=== PATIENT | female | born 1940 | race Caucasian/White ===

== ENCOUNTER 2019-10-11 23:35 | Inpatient (IN) ==
[2019-10-12] MEDS ORDERED: *HR* Metoprolol 5 MG/5 ML VIAL IVP ONE ×3 (03:58→05:49)
[2019-10-12 04:41] LABS: Basophils % 0.1 %; Hemoglobin 15.3 g/dL (11.5-15.4); Immature Granulocytes % 0.6 % (0-4); Lymphocytes # 0.6 K/mcL (0.6-4.6); Lymphocytes % 7.3 %; Mean Corpuscular Hemoglobin 30.7 pg (28.0-33.3); Mean Corpuscular Volume 90.4 fL (83.0-100.0); Mean Platelet Volume 9.2 fL (9.4-12.4); Monocytes # 0.2 K/mcL (0.0-1.3); Monocytes % 1.9 %; Neutrophils # 7.5 K/mcL (1.6-8.9); Platelet Count 201 K/mcL (140-400); Red Blood Count 4.98 M/mcL (3.82-4.97); Red Cell Distribution Width 12.3 % (11.5-14.5); Segmented Neutrophils % 90.1 %; White Blood Count 8.3 K/mcL (4.3-11.1)
[2019-10-12 04:47] LABS: INR 1.2; Prothrombin Time 13.5 Seconds (9.4-12.1)
[2019-10-12 05:06] LABS: Alanine Aminotransferase 10 Units/L (7-52); Albumin 4.1 g/dL (3.5-5.7); Albumin/Globulin Ratio 1.5 (1.1-2.2); Alkaline Phosphatase 67 Units/L (34-104); Aspartate Amino Transferase 11 Units/L (13-39); BUN/Creatinine Ratio 15 (6-26); Bilirubin,Total 0.8 mg/dL (0.3-1.0); Blood Urea Nitrogen 9 mg/dL (8-23); Calcium 8.8 mg/dL (8.6-10.3); Carbon Dioxide 23 mEq/L (23-29); Chloride 106 mEq/L (98-107); Globulin 2.7 g/dL (2.4-3.5); Glucose 209 mg/dL (70-105); Osmolality,Calculated 297 (280-300); Phosphorous 2.7 mg/dL (2.7-4.5); Potassium 3.9 mEq/L (3.5-5.1); Sodium 141 mEq/L (136-145); Total Protein 6.8 g/dL (6.4-8.9); Troponin I < 0.03 ng/mL (< 0.04); eGFR For African Americans > 60 (> 60); eGFR For Non-African Americans > 60 (> 60)
[2019-10-12 05:21] LABS: Thyroid Stimulating Hormone < 0.010 mcIU/mL (0.340-5.600)
[2019-10-12 06:03] LABS: Bilirubin,Urine Negative (Negative); Blood,Urine Negative (Negative); Clarity,Urine Clear (Clear); Color,Urine Yellow (Yellow); Glucose,Urine (UA) 500 mg/dL (Normal); Ketones,Urine Negative (Negative); Leukocyte Esterase,Urine Negative (Negative); Nitrite,Urine Negative (Negative); Protein,Urine Trace mg/dL (Neg-Trace); Specific Gravity,Urine 1.017 (1.010-1.025); Urobilinogen,Urine Normal (Normal)
[2019-10-12] MEDS ORDERED: Naloxone 0.4 MG/ML INJ IVP PRN (08:13)
[2019-10-12] MEDS ORDERED: Acetaminophen 325 MG TABLET PO ONE (08:21)
[2019-10-12] MEDS: Apixaban 5 MG TABLET PO SCH ×2 (09:04→20:02)
[2019-10-12 11:07] LABS: Estimated Average Glucose 114 mg/dl
[2019-10-12 11:53] LABS: Triiodothyronine (T3) Free 3.98 pg/mL (2.50-3.90)
[2019-10-13] MEDS ORDERED: Acetaminophen 325 MG TABLET PO PRN ×2 (00:11→08:40)
[2019-10-13 02:24] LABS: Basophils % 0.3 %; Eosinophils % 0.2 %; Hematocrit 43.4 % (35.3-44.9); Hemoglobin 14.9 g/dL (11.5-15.4); Immature Granulocytes % 0.9 % (0-4); Lymphocytes # 1.6 K/mcL (0.6-4.6); Lymphocytes % 14.8 %; Mean Corpuscular HGB Conc 34.3 g/dL (31.6-35.5); Mean Corpuscular Hemoglobin 30.8 pg (28.0-33.3); Mean Corpuscular Volume 89.7 fL (83.0-100.0); Mean Platelet Volume 9.4 fL (9.4-12.4); Monocytes # 0.8 K/mcL (0.0-1.3); Monocytes % 7.9 %; Platelet Count 209 K/mcL (140-400); Red Blood Count 4.84 M/mcL (3.82-4.97); Red Cell Distribution Width 12.4 % (11.5-14.5); Segmented Neutrophils % 75.9 %; White Blood Count 10.5 K/mcL (4.3-11.1)
[2019-10-13 02:48] LABS: BUN/Creatinine Ratio 25 (6-26); Blood Urea Nitrogen 14 mg/dL (8-23); Carbon Dioxide 23 mEq/L (23-29); Chloride 104 mEq/L (98-107); Glucose 122 mg/dL (70-105); Osmolality,Calculated 292 (280-300); Potassium 3.6 mEq/L (3.5-5.1); Sodium 140 mEq/L (136-145); eGFR For African Americans > 60 (> 60); eGFR For Non-African Americans > 60 (> 60)
[2019-10-13] MEDS ORDERED: MORPHINE SULFATE IM SCH (07:45)
[2019-10-13] MEDS ORDERED: [UNRECOGNIZED DRUG - OTHER] IM SCH (07:45)
[2019-10-13] MEDS ORDERED: Azithromycin 500 MG in 0.9 % Sodium Chloride 250 ML IVPB SCH (08:00)
[2019-10-13] MEDS: Apixaban 5 MG TABLET PO SCH ×2 (08:20→20:33)
[2019-10-13] MEDS: Metoprolol XL (24 HR) Succ 50 MG TAB.ER.24H PO SCH (08:20)
[2019-10-13] MEDS ORDERED: *HR* OxyCODONE/APAP 10/325 TABLET PO PRN (08:21)
[2019-10-13] MEDS ORDERED: cefTRIAXone 1,000 MG in Water for inj. (sterile) 10 ML IVP SCH (09:00)
[2019-10-13] MEDS ORDERED: *HR* OxyCODONE/APAP 10/325 TABLET PO SCH (09:00)
[2019-10-13] MEDS ORDERED: Gabapentin 400 MG CAPSULE PO SCH (09:00)
[2019-10-13] MEDS: MORPHINE PUMP SQ SCH (12:31)
[2019-10-13] MEDS: Gabapentin 400 MG CAPSULE PO SCH (20:33)
[2019-10-14] MEDS: Apixaban 5 MG TABLET PO SCH ×2 (08:50→20:12)
[2019-10-14] MEDS: Metoprolol XL (24 HR) Succ 50 MG TAB.ER.24H PO SCH (08:50)
[2019-10-14] MEDS: Azithromycin 250 MG TABLET PO SCH (08:50)
[2019-10-14] MEDS: cefTRIAXone 1,000 MG in 0.9 % Sodium Chloride Mini Bag 100 ML IVPB SCH (08:55)
[2019-10-14] MEDS: MORPHINE PUMP SQ SCH (08:55)
[2019-10-14] MEDS ORDERED: Metoprolol XL (24 HR) Succ 50 MG TAB.ER.24H PO ONE (10:20)
[2019-10-14] MEDS: Gabapentin 400 MG CAPSULE PO SCH (20:12)
[2019-10-15] MEDS: Azithromycin 250 MG TABLET PO SCH (08:14)
[2019-10-15] MEDS: Apixaban 5 MG TABLET PO SCH ×2 (08:14→21:17)
[2019-10-15] MEDS: MORPHINE PUMP SQ SCH (08:14)
[2019-10-15] MEDS: cefTRIAXone 1,000 MG in 0.9 % Sodium Chloride Mini Bag 100 ML IVPB SCH (08:14)
[2019-10-15] MEDS ORDERED: Metoprolol XL (24 HR) Succ 50 MG TAB.ER.24H PO SCH (09:00)
[2019-10-15] MEDS ORDERED: Metoprolol XL (24 HR) Succ 50 MG TAB.ER.24H PO ONE (09:00)
[2019-10-15] MEDS: Metoprolol XL (24 HR) Succ 50 MG TAB.ER.24H PO SCH ×2 (09:51→21:16)
[2019-10-15] MEDS ORDERED: Metoprolol XL (24 HR) Succ 25 MG TAB.ER.24H PO ONE (10:00)
[2019-10-15] MEDS: Diltiazem CD (24hr) 180 MG CAPSULE PO SCH (12:37)
[2019-10-15] MEDS: Gabapentin 400 MG CAPSULE PO SCH (21:16)
[2019-10-16 08:03] LABS: Hematocrit 40.4 % (35.3-44.9); Hemoglobin 13.5 g/dL (11.5-15.4); Mean Corpuscular HGB Conc 33.4 g/dL (31.6-35.5); Mean Corpuscular Volume 92.7 fL (83.0-100.0); Platelet Count 239 K/mcL (140-400); Red Blood Count 4.36 M/mcL (3.82-4.97); White Blood Count 6.2 K/mcL (4.3-11.1)
[2019-10-16 08:18] LABS: BUN/Creatinine Ratio 20 (6-26); Blood Urea Nitrogen 12 mg/dL (8-23); Calcium 8.9 mg/dL (8.6-10.3); Carbon Dioxide 27 mEq/L (23-29); Chloride 104 mEq/L (98-107); Glucose 109 mg/dL (70-105); Osmolality,Calculated 292 (280-300); Sodium 141 mEq/L (136-145); eGFR For African Americans > 60 (> 60); eGFR For Non-African Americans > 60 (> 60)
[2019-10-16] MEDS ORDERED: levoFLOXacin 750 MG TABLET PO SCH (09:00)
[2019-10-16] MEDS: Diltiazem CD (24hr) 180 MG CAPSULE PO SCH (09:24)
[2019-10-16] MEDS: Metoprolol XL (24 HR) Succ 50 MG TAB.ER.24H PO SCH (09:24)
[2019-10-16] MEDS: Apixaban 5 MG TABLET PO SCH (09:25)
[2019-10-16] MEDS: MORPHINE PUMP SQ SCH (09:25)
[2019-10-16 12:30] VITALS: BP 132/85
== END 2019-10-16 13:10 | disposition home or self-care (01) | DRG 308 ==
LOC: 2ANU → SUATTDRO 10-12 02:18
PROVIDERS: ADMIT Internal Medicine; ATTEND Internal Medicine

== ENCOUNTER 2021-09-12 09:03 | Inpatient (IN) ==
[2021-09-12 09:48] LABS: Basophils # 0.1 K/mcL (0.0-0.2); Basophils % 0.7 %; Eosinophils # 0.1 K/mcL (0.0-0.6); Eosinophils % 1.5 %; Hemoglobin 15.1 g/dL (11.5-15.4); Immature Granulocytes % 0.7 % (0-4); Lymphocytes # 1.6 K/mcL (0.6-4.6); Lymphocytes % 21.3 %; Mean Corpuscular HGB Conc 32.1 g/dL (31.6-35.5); Mean Corpuscular Hemoglobin 31.2 pg (28.0-33.3); Mean Corpuscular Volume 97.1 fL (83.0-100.0); Mean Platelet Volume 9.3 fL (9.4-12.4); Monocytes # 0.6 K/mcL (0.0-1.3); Monocytes % 8.4 %; Platelet Count 196 K/mcL (140-400); Red Blood Count 4.84 M/mcL (3.82-4.97); Red Cell Distribution Width 13.2 % (11.5-14.5); Segmented Neutrophils % 67.4 %; White Blood Count 7.3 K/mcL (4.3-11.1)
[2021-09-12 10:21] LABS: Activated Partial Thrombo Time 40.6 Seconds (26.0-36.0); INR 1.7; Prothrombin Time 18.8 Seconds (9.4-12.1)
[2021-09-12 10:25] LABS: Influenza A PCR Negative (Negative); Influenza B PCR Negative (Negative); Resp. Syncytial Virus PCR Negative (Negative)
[2021-09-12 10:44] LABS: SARS-CoV-2 by PCR (In House) Negative (Negative)
[2021-09-12] MEDS ORDERED: Naloxone 0.4 MG/ML INJ IVP PRN (11:00)
[2021-09-12] MEDS ORDERED: Ondansetron 4 MG/2 ML VIAL IVP PRN (11:00)
[2021-09-12 11:27] LABS: Alanine Aminotransferase 23 Units/L (7-52); Albumin 4.4 g/dL (3.5-5.7); Albumin/Globulin Ratio 1.8 (1.1-2.2); Alkaline Phosphatase 53 Units/L (34-104); Aspartate Amino Transferase 24 Units/L (13-39); BUN/Creatinine Ratio 24 (6-26); Bilirubin,Direct 0.1 mg/dL (0.0-0.2); Bilirubin,Indirect 0.5 mg/dL (0.0-1.0); Bilirubin,Total 0.6 mg/dL (0.3-1.0); Blood Urea Nitrogen 24 mg/dL (8-23); Calcium 9.1 mg/dL (8.6-10.3); Carbon Dioxide 29 mEq/L (23-29); Chloride 102 mEq/L (98-107); Globulin 2.5 g/dL (2.4-3.5); Glucose 93 mg/dL (70-105); Magnesium 2.1 mg/dL (1.6-2.6); Osmolality,Calculated 290 (280-300); Potassium 4.7 mEq/L (3.5-5.1); Sodium 138 mEq/L (136-145); Thyroid Stimulating Hormone 4.814 mcIU/mL (0.340-5.600); Total Protein 6.9 g/dL (6.4-8.9); Troponin I < 0.03 ng/mL (< 0.04); eGFR For African Americans > 60 (> 60); eGFR For Non-African Americans 54 (> 60)
[2021-09-12] MEDS ORDERED: Perflutren Lipid Microsphere 1.3 ML in 0.9 % Sodium Chloride 8.7 ML IVP PRN (11:47)
[2021-09-12] MEDS: 0.9 % Sodium Chloride 1,000 ML IVC SCH (17:10)
[2021-09-12] MEDS: Apixaban 5 MG TABLET PO SCH (20:00)
[2021-09-13 01:40] LABS: BUN/Creatinine Ratio 23 (6-26); Blood Urea Nitrogen 17 mg/dL (8-23); Calcium 8.8 mg/dL (8.6-10.3); Carbon Dioxide 27 mEq/L (23-29); Chloride 106 mEq/L (98-107); Glucose 99 mg/dL (70-105); Magnesium 1.9 mg/dL (1.6-2.6); Osmolality,Calculated 290 (280-300); Potassium 4.1 mEq/L (3.5-5.1); Sodium 139 mEq/L (136-145); Troponin I < 0.03 ng/mL (< 0.04); eGFR For African Americans > 60 (> 60); eGFR For Non-African Americans > 60 (> 60)
[2021-09-13] MEDS: *HR* OxyCODONE/APAP 10/325 TABLET PO PRN ×2 (06:22→17:20)
[2021-09-13] MEDS: lisinopriL 5 MG TABLET PO SCH (08:36)
[2021-09-13] MEDS: Apixaban 5 MG TABLET PO SCH ×2 (08:36→19:57)
[2021-09-13] MEDS: 0.9 % Sodium Chloride 1,000 ML IVC SCH (08:37)
[2021-09-13] MEDS ORDERED: Furosemide 20 MG/2 ML VIAL IVP ONE (09:55)
[2021-09-13] MEDS: Acetaminophen 325 MG TABLET PO PRN (14:49)
[2021-09-14 06:33] LABS: Basophils % 0.5 %; Eosinophils # 0.1 K/mcL (0.0-0.6); Eosinophils % 1.3 %; Hematocrit 43.3 % (35.3-44.9); Hemoglobin 14.2 g/dL (11.5-15.4); Immature Granulocytes % 0.4 % (0-4); Lymphocytes # 1.1 K/mcL (0.6-4.6); Lymphocytes % 20.4 %; Mean Corpuscular HGB Conc 32.8 g/dL (31.6-35.5); Mean Corpuscular Hemoglobin 31.7 pg (28.0-33.3); Mean Corpuscular Volume 96.7 fL (83.0-100.0); Mean Platelet Volume 9.2 fL (9.4-12.4); Monocytes # 0.6 K/mcL (0.0-1.3); Monocytes % 9.9 %; Neutrophils # 3.8 K/mcL (1.6-8.9); Platelet Count 162 K/mcL (140-400); Red Blood Count 4.48 M/mcL (3.82-4.97); Red Cell Distribution Width 12.8 % (11.5-14.5); Segmented Neutrophils % 67.5 %; White Blood Count 5.6 K/mcL (4.3-11.1)
[2021-09-14 07:42] LABS: BUN/Creatinine Ratio 18 (6-26); Blood Urea Nitrogen 14 mg/dL (8-23); Calcium 8.9 mg/dL (8.6-10.3); Carbon Dioxide 28 mEq/L (23-29); Chloride 105 mEq/L (98-107); Glucose 88 mg/dL (70-105); Magnesium 2.1 mg/dL (1.6-2.6); Osmolality,Calculated 292 (280-300); Phosphorous 4.1 mg/dL (2.7-4.5); Potassium 3.6 mEq/L (3.5-5.1); Sodium 141 mEq/L (136-145); eGFR For African Americans > 60 (> 60); eGFR For Non-African Americans > 60 (> 60)
[2021-09-14] MEDS: lisinopriL 5 MG TABLET PO SCH (08:27)
[2021-09-14] MEDS: Apixaban 5 MG TABLET PO SCH ×2 (08:28→21:41)
[2021-09-14] MEDS: *HR* OxyCODONE/APAP 10/325 TABLET PO PRN ×2 (09:57→18:50)
[2021-09-15] MEDS: Acetaminophen 325 MG TABLET PO PRN (03:53)
[2021-09-15 05:24] LABS: Basophils % 0.4 %; Eosinophils # 0.1 K/mcL (0.0-0.6); Eosinophils % 1.8 %; Hematocrit 46.2 % (35.3-44.9); Hemoglobin 14.8 g/dL (11.5-15.4); Immature Granulocytes % 0.4 % (0-4); Lymphocytes # 1.2 K/mcL (0.6-4.6); Lymphocytes % 21.3 %; Mean Corpuscular Volume 96.9 fL (83.0-100.0); Mean Platelet Volume 8.9 fL (9.4-12.4); Monocytes # 0.6 K/mcL (0.0-1.3); Monocytes % 10.4 %; Neutrophils # 3.6 K/mcL (1.6-8.9); Platelet Count 163 K/mcL (140-400); Red Blood Count 4.77 M/mcL (3.82-4.97); Red Cell Distribution Width 12.9 % (11.5-14.5); Segmented Neutrophils % 65.7 %; White Blood Count 5.5 K/mcL (4.3-11.1)
[2021-09-15 05:42] LABS: BUN/Creatinine Ratio 19 (6-26); Blood Urea Nitrogen 15 mg/dL (8-23); Calcium 8.7 mg/dL (8.6-10.3); Carbon Dioxide 28 mEq/L (23-29); Chloride 104 mEq/L (98-107); Glucose 93 mg/dL (70-105); Osmolality,Calculated 289 (280-300); Phosphorous 4.1 mg/dL (2.7-4.5); Potassium 3.5 mEq/L (3.5-5.1); Sodium 139 mEq/L (136-145); eGFR For African Americans > 60 (> 60); eGFR For Non-African Americans > 60 (> 60)
[2021-09-15] MEDS: lisinopriL 5 MG TABLET PO SCH (08:13)
[2021-09-15] MEDS: Apixaban 5 MG TABLET PO SCH ×2 (08:14→19:18)
[2021-09-15] MEDS ORDERED: lisinopriL 5 MG TABLET PO ONE (10:55)
[2021-09-15] MEDS: *HR* OxyCODONE/APAP 10/325 TABLET PO PRN (15:42)
[2021-09-16] MEDS ORDERED: Melatonin 3 MG TABLET PO ONE (02:43)
[2021-09-16 03:24] LABS: Basophils % 0.7 %; Eosinophils # 0.1 K/mcL (0.0-0.6); Eosinophils % 1.2 %; Hematocrit 43.4 % (35.3-44.9); Hemoglobin 14.6 g/dL (11.5-15.4); Immature Granulocytes % 0.3 % (0-4); Lymphocytes # 1.4 K/mcL (0.6-4.6); Lymphocytes % 22.7 %; Mean Corpuscular HGB Conc 33.6 g/dL (31.6-35.5); Mean Corpuscular Hemoglobin 32.4 pg (28.0-33.3); Mean Corpuscular Volume 96.4 fL (83.0-100.0); Mean Platelet Volume 9.5 fL (9.4-12.4); Monocytes # 0.7 K/mcL (0.0-1.3); Monocytes % 11.3 %; Neutrophils # 3.8 K/mcL (1.6-8.9); Platelet Count 174 K/mcL (140-400); Red Cell Distribution Width 12.8 % (11.5-14.5); Segmented Neutrophils % 63.8 %
[2021-09-16 03:38] LABS: BUN/Creatinine Ratio 25 (6-26); Blood Urea Nitrogen 22 mg/dL (8-23); Calcium 8.6 mg/dL (8.6-10.3); Carbon Dioxide 29 mEq/L (23-29); Chloride 103 mEq/L (98-107); Glucose 91 mg/dL (70-105); Magnesium 1.9 mg/dL (1.6-2.6); Osmolality,Calculated 291 (280-300); Phosphorous 4.4 mg/dL (2.7-4.5); Potassium 3.4 mEq/L (3.5-5.1); Sodium 139 mEq/L (136-145); eGFR For African Americans > 60 (> 60); eGFR For Non-African Americans > 60 (> 60)
[2021-09-16] MEDS: Apixaban 5 MG TABLET PO SCH (07:59)
[2021-09-16] MEDS ORDERED: lisinopriL 10 MG TABLET PO SCH (09:00)
[2021-09-16 11:14] VITALS: BP 136/62; PULSE 50; TEMP 98.8; O2SAT 93
[2021-09-16] MEDS ORDERED: FLU Vac QV 21-22 (6Month+)/PF 0.5 ML SYRINGE IM ONE (11:23)
== END 2021-09-16 12:26 | disposition home or self-care (01) | DRG 308 ==
LOC: CDU 09:03 → EMEROOARM 09:03 → CDU 12:24 → 2NNU 17:29
PROVIDERS: ADMIT Student in an Organized Health Care Education/Training Program; ATTEND Student in an Organized Health Care Education/Training Program

== ENCOUNTER 2021-12-07 08:15 | Inpatient (IN) ==
[~2021-12-07 08:15] MED LIST: Acetaminophen IV 1,000 MG/100 ML BAG IVPB ONE; Famotidine 20 MG/2 ML VIAL IVP ONE; tiZANidine 4 MG TABLET PO SCH
[2021-12-07] MEDS ORDERED: *HR* Succinylcholine 200 MG/10 ML VIAL IVP ONE (08:39)
[2021-12-07] MEDS ORDERED: Lidocaine -MPF 2% 5 ML VIAL ONE (08:39)
[2021-12-07] MEDS ORDERED: *HR* Propofol 200 MG/20 ML VIAL IVP ONE (08:40)
[2021-12-07] MEDS ORDERED: *HR* HYDROmorphone PF 0.5 MG/0.5 ML SYRINGE IVP PRN (08:42)
[2021-12-07] MEDS ORDERED: Ondansetron 4 MG/2 ML VIAL IVP PRN ×2 (08:42→13:18)
[2021-12-07] MEDS ORDERED: Albuterol 2.5 MG/3 ML NEBULIZER IH PRN (08:42)
[2021-12-07] MEDS ORDERED: *HR* OxyCODONE Immed Rel 5 MG TABLET PO PRN (08:42)
[2021-12-07] MEDS ORDERED: CeFAZolin Syr 2,000MG/20 ML 2,000 MG/20 ML SYRINGE IVPB ONE (08:44)
[2021-12-07] MEDS ORDERED: Ringers Solution, Lactated 1,000 ML IVC SCH (08:45)
[2021-12-07] MEDS ORDERED: *HR* FentaNYL (PF) 100 MCG/2 ML VIAL ONE (09:09)
[2021-12-07] MEDS ORDERED: Bupivacaine/EPI 1:200k 0.25% 50 ML VIAL ONE (09:38)
[2021-12-07] MEDS ORDERED: Vancomycin 1,000 MG VIAL ONE (09:38)
[2021-12-07] MEDS ORDERED: Polymyxin B Sulfate 500,000 UNIT, Sodium Chloride IRRigation 1,000 ML IR ONE (10:00)
[2021-12-07] MEDS ORDERED: Ondansetron 4 MG/2 ML VIAL ONE (10:19)
[2021-12-07] MEDS ORDERED: EPHEDrine 50 MG/ML VIAL ONE (10:25)
[2021-12-07] MEDS ORDERED: Sugammadex Sodium 200 MG/2 ML VIAL IV ONE (10:57)
[2021-12-07] MEDS ORDERED: Naloxone 0.4 MG/ML INJ IVP PRN (13:18)
[2021-12-07] MEDS ORDERED: Sennosides 8.6 MG TABLET PO PRN (13:18)
[2021-12-07] MEDS ORDERED: Baclofen 10 MG TABLET PO SCH (13:18)
[2021-12-07] MEDS ORDERED: KETOPROFEN PO SCH (13:18)
[2021-12-07] MEDS: *HR* HYDROcodone/Acet 5/325 mg TABLET PO PRN (13:52)
[2021-12-07] MEDS: *HR* OxyCODONE Immed Rel 5 MG TABLET PO PRN ×2 (15:07→21:06)
[2021-12-07] MEDS: CeFAZolin 2 GM/120 ML BAG IVPB SCH (16:34)
[2021-12-07] MEDS ORDERED: Celecoxib 200 MG CAPSULE PO SCH (21:00)
[2021-12-08] MEDS: CeFAZolin 2 GM/120 ML BAG IVPB SCH (01:32)
[2021-12-08] MEDS: *HR* OxyCODONE Immed Rel 5 MG TABLET PO PRN ×3 (03:35→20:44)
[2021-12-08] MEDS ORDERED: Famotidine 20 MG TABLET PO SCH (09:00)
[2021-12-08] MEDS ORDERED: *HR* Amiodarone 200 MG TABLET PO SCH (09:00)
[2021-12-09] MEDS: *HR* HYDROcodone/Acet 5/325 mg TABLET PO PRN (01:03)
[2021-12-09] MEDS: *HR* OxyCODONE Immed Rel 5 MG TABLET PO PRN ×4 (03:16→19:22)
[2021-12-09] MEDS: Metoprolol XL (24 HR) Succ 25 MG TAB.ER.24H PO SCH (08:39)
[2021-12-09] MEDS: lisinopriL 10 MG TABLET PO SCH (09:43)
[2021-12-09] MEDS ORDERED: *HR* OxyCODONE Immed Rel 5 MG TABLET PO PRN (10:52)
[2021-12-09] MEDS: Sennosides/Docusate Sodium TABLET PO SCH ×2 (11:18→21:07)
[2021-12-09] MEDS: polyethylene glycoL 3350 17 GM POWD.PACK PO SCH (11:22)
[2021-12-10] MEDS: *HR* OxyCODONE Immed Rel 5 MG TABLET PO PRN ×4 (02:50→21:27)
[2021-12-10 06:42] LABS: Basophils % 0.4 %; Eosinophils # 0.3 K/mcL (0.0-0.6); Eosinophils % 3.7 %; Hematocrit 40.1 % (35.3-44.9); Immature Granulocytes % 0.4 % (0-4); Lymphocytes # 1.6 K/mcL (0.6-4.6); Lymphocytes % 22.5 %; Mean Corpuscular HGB Conc 31.9 g/dL (31.6-35.5); Mean Corpuscular Volume 97.1 fL (83.0-100.0); Mean Platelet Volume 9.5 fL (9.4-12.4); Monocytes # 0.7 K/mcL (0.0-1.3); Monocytes % 10.1 %; Neutrophils # 4.6 K/mcL (1.6-8.9); Platelet Count 167 K/mcL (140-400); Red Blood Count 4.13 M/mcL (3.82-4.97); Segmented Neutrophils % 62.9 %; White Blood Count 7.3 K/mcL (4.3-11.1)
[2021-12-10 06:52] LABS: Hemoglobin 12.8 g/dL (11.5-15.4)
[2021-12-10 07:03] LABS: BUN/Creatinine Ratio 17 (6-26); Blood Urea Nitrogen 13 mg/dL (8-23); Calcium 8.8 mg/dL (8.6-10.3); Carbon Dioxide 30 mEq/L (23-29); Chloride 102 mEq/L (98-107); Glucose 89 mg/dL (70-105); Magnesium 1.8 mg/dL (1.6-2.6); Osmolality,Calculated 286 (280-300); Sodium 138 mEq/L (136-145); eGFR For African Americans > 60 (> 60); eGFR For Non-African Americans > 60 (> 60)
[2021-12-10] MEDS: polyethylene glycoL 3350 17 GM POWD.PACK PO SCH (08:24)
[2021-12-10] MEDS: lisinopriL 10 MG TABLET PO SCH (08:24)
[2021-12-10] MEDS: Sennosides/Docusate Sodium TABLET PO SCH ×2 (08:24→21:05)
[2021-12-10] MEDS: Metoprolol XL (24 HR) Succ 25 MG TAB.ER.24H PO SCH (08:24)
[2021-12-11] MEDS: *HR* OxyCODONE Immed Rel 5 MG TABLET PO PRN ×3 (05:17→20:41)
[2021-12-11 06:44] LABS: Basophils % 0.5 %; Eosinophils # 0.2 K/mcL (0.0-0.6); Eosinophils % 3.1 %; Hematocrit 41.1 % (35.3-44.9); Hemoglobin 13.1 g/dL (11.5-15.4); Immature Granulocytes % 0.6 % (0-4); Lymphocytes # 1.5 K/mcL (0.6-4.6); Lymphocytes % 23.9 %; Mean Corpuscular HGB Conc 31.9 g/dL (31.6-35.5); Mean Corpuscular Volume 97.2 fL (83.0-100.0); Mean Platelet Volume 9.5 fL (9.4-12.4); Monocytes # 0.6 K/mcL (0.0-1.3); Monocytes % 9.7 %; Platelet Count 183 K/mcL (140-400); Red Blood Count 4.23 M/mcL (3.82-4.97); Segmented Neutrophils % 62.2 %; White Blood Count 6.4 K/mcL (4.3-11.1)
[2021-12-11 07:01] LABS: BUN/Creatinine Ratio 20 (6-26); Blood Urea Nitrogen 17 mg/dL (8-23); Calcium 8.9 mg/dL (8.6-10.3); Carbon Dioxide 32 mEq/L (23-29); Chloride 101 mEq/L (98-107); Glucose 105 mg/dL (70-105); Magnesium 1.9 mg/dL (1.6-2.6); Osmolality,Calculated 284 (280-300); Sodium 136 mEq/L (136-145); eGFR For African Americans > 60 (> 60); eGFR For Non-African Americans > 60 (> 60)
[2021-12-11] MEDS: Metoprolol XL (24 HR) Succ 25 MG TAB.ER.24H PO SCH (08:23)
[2021-12-11] MEDS: lisinopriL 10 MG TABLET PO SCH (08:24)
[2021-12-11] MEDS: Sennosides/Docusate Sodium TABLET PO SCH ×2 (08:24→20:41)
[2021-12-11] MEDS: polyethylene glycoL 3350 17 GM POWD.PACK PO SCH (08:24)
[2021-12-11] MEDS: Acetaminophen 325 MG TABLET PO PRN (15:47)
[2021-12-12] MEDS: *HR* OxyCODONE Immed Rel 5 MG TABLET PO PRN ×4 (01:01→20:00)
[2021-12-12] MEDS: Metoprolol XL (24 HR) Succ 25 MG TAB.ER.24H PO SCH (08:53)
[2021-12-12] MEDS: polyethylene glycoL 3350 17 GM POWD.PACK PO SCH (08:53)
[2021-12-12] MEDS: lisinopriL 10 MG TABLET PO SCH (08:53)
[2021-12-12] MEDS: Acetaminophen 325 MG TABLET PO PRN (14:44)
[2021-12-13] MEDS: *HR* OxyCODONE Immed Rel 5 MG TABLET PO PRN ×4 (00:27→20:13)
[2021-12-13 05:24] LABS: Basophils % 0.5 %; Eosinophils # 0.2 K/mcL (0.0-0.6); Eosinophils % 3.1 %; Hemoglobin 12.4 g/dL (11.5-15.4); Immature Granulocytes % 0.5 % (0-4); Lymphocytes # 1.5 K/mcL (0.6-4.6); Lymphocytes % 23.6 %; Mean Corpuscular HGB Conc 31.8 g/dL (31.6-35.5); Mean Corpuscular Hemoglobin 30.9 pg (28.0-33.3); Mean Corpuscular Volume 97.3 fL (83.0-100.0); Mean Platelet Volume 9.5 fL (9.4-12.4); Monocytes # 0.7 K/mcL (0.0-1.3); Monocytes % 10.8 %; Neutrophils # 3.8 K/mcL (1.6-8.9); Platelet Count 194 K/mcL (140-400); Red Blood Count 4.01 M/mcL (3.82-4.97); Red Cell Distribution Width 12.8 % (11.5-14.5); Segmented Neutrophils % 61.5 %; White Blood Count 6.2 K/mcL (4.3-11.1)
[2021-12-13 05:52] LABS: BUN/Creatinine Ratio 24 (6-26); Blood Urea Nitrogen 18 mg/dL (8-23); Calcium 8.7 mg/dL (8.6-10.3); Carbon Dioxide 27 mEq/L (23-29); Chloride 102 mEq/L (98-107); Glucose 90 mg/dL (70-105); Magnesium 1.9 mg/dL (1.6-2.6); Osmolality,Calculated 285 (280-300); Potassium 4.1 mEq/L (3.5-5.1); Sodium 137 mEq/L (136-145); eGFR For African Americans > 60 (> 60); eGFR For Non-African Americans > 60 (> 60)
[2021-12-13] MEDS: Metoprolol XL (24 HR) Succ 25 MG TAB.ER.24H PO SCH (08:26)
[2021-12-13] MEDS: polyethylene glycoL 3350 17 GM POWD.PACK PO SCH (08:26)
[2021-12-13] MEDS: lisinopriL 10 MG TABLET PO SCH (08:26)
[2021-12-14] MEDS: *HR* OxyCODONE Immed Rel 5 MG TABLET PO PRN ×5 (06:02→23:44)
[2021-12-14] MEDS: Metoprolol XL (24 HR) Succ 25 MG TAB.ER.24H PO SCH (08:05)
[2021-12-14] MEDS: Acetaminophen 325 MG TABLET PO PRN ×3 (08:11→21:21)
[2021-12-14] MEDS: polyethylene glycoL 3350 17 GM POWD.PACK PO SCH (08:12)
[2021-12-14] MEDS: lisinopriL 10 MG TABLET PO SCH (08:12)
[2021-12-15] MEDS: *HR* OxyCODONE Immed Rel 5 MG TABLET PO PRN ×4 (03:47→17:11)
[2021-12-15] MEDS: lisinopriL 10 MG TABLET PO SCH (08:15)
[2021-12-15] MEDS: Metoprolol XL (24 HR) Succ 25 MG TAB.ER.24H PO SCH (08:15)
[2021-12-15] MEDS: polyethylene glycoL 3350 17 GM POWD.PACK PO SCH (08:20)
[2021-12-15 15:43] VITALS: BP 126/83; PULSE 74; TEMP 97.8; O2SAT 95
== END 2021-12-15 18:05 | disposition home or self-care (01) | DRG 519 ==
LOC: SDCAOSI 08:15 → 4WAOSI 08:15 → SUATTDRO 12-08 09:56
PROVIDERS: ADMIT Student in an Organized Health Care Education/Training Program; ATTEND Internal Medicine

== ENCOUNTER 2022-04-12 06:16 | Inpatient (IN) ==
[2022-04-12] MEDS ORDERED: tiZANidine 4 MG TABLET PO SCH (07:00)
[2022-04-12] MEDS ORDERED: *HR* OxyCODONE Immed Rel 5 MG TABLET PO ONE (07:00)
[2022-04-12] MEDS ORDERED: Famotidine 20 MG TABLET PO ONE (07:00)
[2022-04-12] MEDS ORDERED: CeFAZolin Syr 2,000MG/20 ML 2,000 MG/20 ML SYRINGE IVPB ONE (07:05)
[2022-04-12] MEDS ORDERED: *HR* Propofol 200 MG/20 ML VIAL IVP ONE (07:25)
[2022-04-12] MEDS ORDERED: *HR* FentaNYL (PF) 100 MCG/2 ML VIAL ONE ×2 (07:25→13:00)
[2022-04-12] MEDS ORDERED: Lidocaine -MPF 2% 2 ML VIAL ONE (07:25)
[2022-04-12] MEDS ORDERED: *HR* Rocuronium Bromide 50 MG/5 ML VIAL ONE (07:25)
[2022-04-12] MEDS ORDERED: Ondansetron 4 MG/2 ML VIAL ONE (07:25)
[2022-04-12] MEDS ORDERED: *HR* Succinylcholine 200 MG/10 ML VIAL IVP ONE (07:25)
[2022-04-12] MEDS ORDERED: Lidocaine HCL 4 ML Topical Solution (Laryng-O-Jet Kit Sterile Pak) TP ONE (07:25)
[2022-04-12] MEDS ORDERED: *HR* Phenylephrine 10 MG/ML VIAL ONE (07:26)
[2022-04-12] MEDS ORDERED: *HR* Remifentanil 1 MG VIAL IVP ONE ×3 (07:28→11:54)
[2022-04-12] MEDS ORDERED: *HR* Vasopressin 20 UNIT/ML VIAL ONE (07:38)
[2022-04-12] MEDS ORDERED: Vancomycin 1,000 MG VIAL ONE (07:39)
[2022-04-12] MEDS ORDERED: Bupivacaine/EPI 1:200k 0.25% 50 ML VIAL ONE (07:39)
[2022-04-12] MEDS ORDERED: Heparin 1,000 UNITS/500 mL 500 ML ONE (07:42)
[2022-04-12] MEDS: Ringers Solution, Lactated 1,000 ML IVC SCH ×3 (07:43→20:35)
[2022-04-12] MEDS ORDERED: *HR* Atropine Sulfate 1 MG/10 ML SYRINGE ONE (08:36)
[2022-04-12] MEDS ORDERED: *HR* HYDROmorphone PF 0.5 MG/0.5 ML SYRINGE IVP PRN (09:25)
[2022-04-12 12:18] LABS: ABG Base Excess -1 mEq/L (-2 to 3); ABG Chloride 103 mEq/L (98-107); ABG Glucose 156 mg/dL (60-95); ABG HCO3 23 mEq/L (21-27); ABG Ionized Calcium 1.21 mmol/L (1.15-1.35); ABG Oxygen Saturation 99 % (95-98); ABG PCO2 38 mmHg (35-45); ABG PO2 153 mmHg (85-104); ABG TCO2 25 mEq/L (20-26)
[2022-04-12] MEDS ORDERED: *HR* HYDROMORPHONE 2 MG/ML VIAL ONE (13:24)
[2022-04-12] MEDS ORDERED: Ipratropium Neb 0.5 MG NEBULIZER IH PRN (14:55)
[2022-04-12] MEDS ORDERED: *HR* OxyCODONE Immed Rel 5 MG TABLET PO PRN (15:23)
[2022-04-12] MEDS: *HR* FentaNYL (PF) 100 MCG/2 ML VIAL IVP PRN ×4 (15:29→16:04)
[2022-04-12] MEDS ORDERED: Pregabalin 50 MG CAPSULE PO ONE (15:30)
[2022-04-12] MEDS ORDERED: Acetaminophen IV 1,000 MG/100 ML BAG IVPB ONE ×2 (15:30→16:28)
[2022-04-12] MEDS ORDERED: tiZANidine 4 MG TABLET PO ONE (17:05)
[2022-04-12] MEDS ORDERED: Naloxone 0.4 MG/ML INJ IVP PRN (18:51)
[2022-04-12] MEDS ORDERED: Ondansetron 4 MG/2 ML VIAL IVP PRN (18:51)
[2022-04-12] MEDS: CeFAZolin 2 GM/120 ML BAG IVPB SCH (20:36)
[2022-04-12] MEDS: *HR* OxyCODONE ER (12 HR) 20 MG TABLET PO SCH (20:36)
[2022-04-12] MEDS: *HR* OxyCODONE/APAP 10/325 TABLET PO PRN (23:18)
[2022-04-12] MEDS: Acetaminophen 325 MG TABLET PO SCH (23:18)
[2022-04-12] MEDS: tiZANidine 4 MG TABLET PO PRN (23:18)
[2022-04-13] MEDS: CeFAZolin 2 GM/120 ML BAG IVPB SCH (03:17)
[2022-04-13] MEDS: *HR* OxyCODONE/APAP 10/325 TABLET PO PRN ×2 (03:21→10:04)
[2022-04-13] MEDS: Acetaminophen 325 MG TABLET PO SCH ×4 (06:07→23:24)
[2022-04-13] MEDS: *HR* OxyCODONE ER (12 HR) 20 MG TABLET PO SCH ×5 (06:07→20:11)
[2022-04-13] MEDS: lisinopriL 10 MG TABLET PO SCH (08:31)
[2022-04-13] MEDS: Metoprolol XL (24 HR) Succ 25 MG TAB.ER.24H PO SCH (08:31)
[2022-04-13] MEDS: tiZANidine 4 MG TABLET PO PRN ×3 (08:31→21:15)
[2022-04-13] MEDS ORDERED: *HR* OxyCODONE Immed Rel 15 MG TABLET PO PRN (13:38)
[2022-04-13] MEDS ORDERED: GI Cocktail 40 ML EACH PO ONE (21:01)
[2022-04-13] MEDS: Ringers Solution, Lactated 1,000 ML IVC SCH (23:16)
[2022-04-13] MEDS: *HR* HYDROmorphone PCA *PREMADE* 20 MG/1MG/ML (20mL) PCA VIAL IVC PRN (23:19)
[2022-04-14] MEDS: *HR* HYDROmorphone PCA *PREMADE* 20 MG/1MG/ML (20mL) PCA VIAL IVC PRN (04:32)
[2022-04-14] MEDS: *HR* OxyCODONE ER (12 HR) 20 MG TABLET PO SCH ×2 (06:38→18:25)
[2022-04-14] MEDS: Acetaminophen 325 MG TABLET PO SCH ×4 (06:38→23:59)
[2022-04-14] MEDS: Metoprolol XL (24 HR) Succ 25 MG TAB.ER.24H PO SCH (09:49)
[2022-04-14] MEDS: lisinopriL 10 MG TABLET PO SCH (09:49)
[2022-04-14] MEDS: Ringers Solution, Lactated 1,000 ML IVC SCH (18:25)
[2022-04-15] MEDS: *HR* HYDROmorphone PCA *PREMADE* 20 MG/1MG/ML (20mL) PCA VIAL IVC PRN (01:30)
[2022-04-15] MEDS: Ringers Solution, Lactated 1,000 ML IVC SCH ×2 (04:58→17:44)
[2022-04-15] MEDS: Acetaminophen 325 MG TABLET PO SCH ×4 (04:58→23:27)
[2022-04-15] MEDS: *HR* OxyCODONE ER (12 HR) 20 MG TABLET PO SCH ×2 (04:58→17:43)
[2022-04-15] MEDS: lisinopriL 10 MG TABLET PO SCH (09:08)
[2022-04-15] MEDS: Metoprolol XL (24 HR) Succ 25 MG TAB.ER.24H PO SCH (09:08)
[2022-04-16] MEDS: Acetaminophen 325 MG TABLET PO SCH ×3 (05:10→17:41)
[2022-04-16] MEDS: *HR* OxyCODONE ER (12 HR) 20 MG TABLET PO SCH ×2 (05:10→17:42)
[2022-04-16] MEDS: lisinopriL 10 MG TABLET PO SCH (08:26)
[2022-04-16] MEDS: Metoprolol XL (24 HR) Succ 25 MG TAB.ER.24H PO SCH (08:26)
[2022-04-16] MEDS: *HR* OxyCODONE Immed Rel 5 MG TABLET PO PRN ×4 (11:32→21:01)
[2022-04-16] MEDS: tiZANidine 4 MG TABLET PO PRN ×2 (13:36→21:02)
[2022-04-16] MEDS: *HR* Heparin 5,000 UNIT/ML VIAL SQ SCH ×3 (14:35→21:02)
[2022-04-17] MEDS: *HR* OxyCODONE Immed Rel 5 MG TABLET PO PRN ×7 (00:54→21:31)
[2022-04-17] MEDS: Acetaminophen 325 MG TABLET PO SCH ×4 (00:54→18:12)
[2022-04-17] MEDS: *HR* OxyCODONE ER (12 HR) 20 MG TABLET PO SCH ×2 (06:04→18:12)
[2022-04-17] MEDS: *HR* Heparin 5,000 UNIT/ML VIAL SQ SCH ×3 (06:04→21:31)
[2022-04-17] MEDS: tiZANidine 4 MG TABLET PO PRN ×2 (07:27→19:42)
[2022-04-17] MEDS: lisinopriL 10 MG TABLET PO SCH (07:28)
[2022-04-17] MEDS: Metoprolol XL (24 HR) Succ 25 MG TAB.ER.24H PO SCH (07:28)
[2022-04-17] MEDS ORDERED: polyethylene glycoL 3350 17 GM POWD.PACK PO PRN (08:40)
[2022-04-17 15:35] LABS: Bilirubin,Urine Negative (Negative); Blood,Urine Negative (Negative); Clarity,Urine Clear (Clear); Color,Urine Light-Yellow (Yellow); Glucose,Urine (UA) Normal (Normal); Ketones,Urine Negative (Negative); Leukocyte Esterase,Urine Negative (Negative); Nitrite,Urine Negative (Negative); PH,Urine 6.5 pH Units (5.0-8.0); Protein,Urine Negative (Neg-Trace); Specific Gravity,Urine 1.015 (1.010-1.025)
[2022-04-18] MEDS: *HR* OxyCODONE Immed Rel 5 MG TABLET PO PRN ×5 (00:40→17:04)
[2022-04-18] MEDS: Acetaminophen 325 MG TABLET PO SCH ×4 (00:40→19:28)
[2022-04-18] MEDS: *HR* Heparin 5,000 UNIT/ML VIAL SQ SCH ×3 (06:23→21:01)
[2022-04-18] MEDS: *HR* OxyCODONE ER (12 HR) 20 MG TABLET PO SCH ×2 (06:23→19:28)
[2022-04-18] MEDS: Metoprolol XL (24 HR) Succ 25 MG TAB.ER.24H PO SCH (09:23)
[2022-04-18] MEDS: lisinopriL 10 MG TABLET PO SCH (09:24)
[2022-04-18] MEDS: tiZANidine 4 MG TABLET PO PRN ×2 (13:28→21:01)
[2022-04-19] MEDS: Acetaminophen 325 MG TABLET PO SCH ×3 (00:24→13:33)
[2022-04-19] MEDS: *HR* OxyCODONE Immed Rel 5 MG TABLET PO PRN ×3 (00:25→13:34)
[2022-04-19] MEDS: *HR* OxyCODONE ER (12 HR) 20 MG TABLET PO SCH (05:50)
[2022-04-19] MEDS: *HR* Heparin 5,000 UNIT/ML VIAL SQ SCH (05:51)
[2022-04-19 06:44] VITALS: PULSE 56
[2022-04-19] MEDS: Metoprolol XL (24 HR) Succ 25 MG TAB.ER.24H PO SCH (07:27)
[2022-04-19] MEDS: tiZANidine 4 MG TABLET PO PRN (07:27)
[2022-04-19] MEDS: lisinopriL 10 MG TABLET PO SCH (07:35)
[2022-04-19 10:44] VITALS: BP 153/70
[2022-04-19 10:50] VITALS: TEMP 98.1
[2022-04-19 10:59] VITALS: O2SAT 97
[2022-04-19 14:17] LABS: Adenovirus Not Detected (Not Detect); Bordetella Pertussis Not Detected (Not Detect); Chlamydophila pneumoniae Not Detected (Not Detect); Coronavirus 229E Not Detected (Not Detect); Coronavirus HKU1 Not Detected (Not Detect); Coronavirus NL63 Not Detected (Not Detect); Coronavirus OC43 Not Detected (Not Detect); Human Metapneumovirus Not Detected (Not Detect); Human Rhinovirus/Enterovirus Not Detected (Not Detect); Influenza A Subtype 2009 H1 Not Detected (Not Detect); Influenza B Not Detected (Not Detect); Mycoplasma pneumoniae Not Detected (Not Detect); Parainfluenza Virus 1 Not Detected (Not Detect); Parainfluenza Virus 2 Not Detected (Not Detect); Parainfluenza Virus 3 Not Detected (Not Detect); Parainfluenza Virus 4 Not Detected (Not Detect); Respiratory Syncytial Virus Not Detected (Not Detect); SARS-CoV-2 Not Detected (Not Detect)
== END 2022-04-19 17:33 | DRG 460 ==
LOC: 4WAOSI 06:16 → SDCAOSI 06:16 → 4WAOSI 17:39
PROVIDERS: ADMIT Student in an Organized Health Care Education/Training Program; ATTEND Student in an Organized Health Care Education/Training Program